=== PATIENT | male | born 1975 | race Caucasian/White ===

== ENCOUNTER 2025-03-18 07:50 | Emergency (ER) | payer OTHER, SELFPAY ==
[2025-03-18 07:52] VITALS: BP 123/101; PULSE 73; RESP 16; TEMP 36.6; O2SAT 98; BMI 27.9
[2025-03-18 08:06] VITALS: BP 124/93; PULSE 76; RESP 16; TEMP 36.8; O2SAT 99
--- NOTE | 2025-03-18 08:19 | EDS_ITS ---
HPI History of Present Illness Chief Complaint: Cellulitis PFSH PFSH Medical History no medical history Home Medications ?Medication ?Instructions ?Recorded ?Last Taken ?Type sulfamethoxazole 800 1 tab PO BID #14 tabs Unknown Rx mg-trimethoprim 160 mg tablet (Bactrim DS) doxycycline hyclate 100 mg capsule 100 mg PO BID 10 da ys #20 caps 03/18/25 Unknown Rx Allergy/AdvReac Type Severity Reaction Status Date / Time No Known Allergies Allergy Verified 03/18/25 07:51 Surgical History no surgical history
--- NOTE | 2025-03-18 08:19 | EX.ED.DYSGE1 ---
HPI History of Present Illness Chief Complaint: Cellulitis [facility] Medical History no medical history Home Medications ?Medication ?Instructions ?Recorded ?Last Taken ?Type sulfamethoxazole 800 1 tab PO BID #14 tabs 03/11/25 Unknown Rx mg-trimethoprim 160 mg tablet (Bactrim DS) doxycycline hyclate 100 mg capsule 100 mg PO BID 10 days #20 caps 03/18/25 Unknown Rx Allergy/AdvReac Type Severity Reaction Status Date / Time No Known Allergies Allergy Verified 03/18/25 07:51 Surgical History no surgical history Social History Smoking Status: Unknown if ever smoked EXAM Physical Exam Const Vital Signs: 03/18/25 07:52 03/18/25 08:06 03/18/25 10:00 Temperature 97.9 F 98.3 F 97.5 F L Temperature Source Oral Oral Oral Pulse Rate 73 76 61 Respiratory Rate 16 16 18 Blood Pressure 123/101 H 124/93 H 125/91 H Blood Pressure Mean 108 103 102 Pulse Ox 98 99 98 Oxygen Delivery Method Room Air Room Air Room Air MDM [facility] Narrative Medical decision making narrative: HISTORY OF PRESENT ILLNESS: Chief complaint: Concern for cellulitis 49-year-old male presents concern for cellulitis. He states he has had 7 days of redness. Notes has been on Bactrim however it does not improve his symptoms. He notes he finished antibiotics today. REVIEW OF SYSTEMS: Pertinent positives: Leg redness Pertinent negatives: Vomiting PHYSICAL EXAM: Nursing triage notes reviewed, Vital signs reviewed Constitutional: please see mdm Lungs: Clear to auscultation, No wheezing or rales. No increased work of breathing, no conversational dyspnea, no accessory muscle use, no nasal flaring. No respiratory distress noted Heart: Regular rate and rhythm, No murmurs, No rubs and No gallops, 2+ distal pulses (radial, femoral, posterior tibial) in all extremities Extremities: No edema, compartments are soft Neuro: Intact sensation L1-S1 dermatomal distributions. Intact 5/5 strength in hip flexion (T12-L3). Knee extension (L2-L4). Ankle dorsiflexion (L4-L5). Ankle plantar flexion (S1). Great toe extension (L5). 2+ patellar and Achilles DTRs. Skin: Erythematous rash noted to the posterior calf, no crepitus or bullae noted, there is approximately 12 x 12 cm area of redness. Pain is on reports exam. Compartments are soft. MEDICAL DECISION MAKING: Chief Complaint: please see HPI External records reviewed: Reviewed prior allergies, problem list, vital signs, current and past medications Factors affecting care: none Social determinants of health: none History obtained from others: none Consults: none [facility] Narrative: The patient was initially hemodynamically stable, afebrile and nontoxic-appearing saturating 99% on room air. I considered the following differential diagnosis: Cellulitis, necrotizing fasciitis Clinical exam was not consistent with necrotizing fasciitis. The patient did not appear to be toxic or septic. I obtained a broad lab and imaging workup to further determine if the patient was suffering from a life-threatening etiology. Initially treat the patient with IV vancomycin ALL IMAGES (IF OBTAINED) HAVE BEEN PERSONALLY REVIEWED AND INTERPRETED BY MYSELF. Lactate is wnl indicating no end-organ hypoperfusion and/or hypoxia. CBC without leukocytosis to suggest severe systemic inflammation BMP without evidence of significant electrolyte abnormalities, no anion gap, no acute kidney injury. Patient was offered admission given failure of outpatient antibiotics. Patient was alert and orient x 3 and had capacity to make his own medical decisions. He chose to be discharged with oral antibiotics and live admission at this time. He promised to return if symptoms change or worsen The patient and/or family, caregivers express understanding. The patient and/or family, caregivers agrees with the plan. Shared decision making: I will have a discussion with the patient and or visitors regarding risk/benefits of further testing or admission. They will be made aware of of the risk/benefits inherent in this decision they will be given the opportunity to voice understanding. Total critical care time today provided was at least 0 minutes. This excludes separately billable procedures. Critical care time (if documented) is secondary to the patient having high probability of clinically significant/life threatening deterioration in the patient's condition which required my urgent intervention. Impression: 1. Left leg cellulitis 2. Failed outpatient Dispo: Discharge home This note was generated with [employer] dictation software. It may contain incorrect words, spelling, and punctuation that were not noted in review of the chart prior to signing. Lab Data Labs: Laboratory Results - last 24 hr 03/18/25 03/18/25 09:05 09:07 WBC 5.0 RBC 4.59 L Hgb 14.0 Hct 40.9 MCV 89.1 MCH 30.5 MCHC 34.2 RDW Std Deviation 42.0 RDW Coeff of Evert 12.7 Plt Count 227 MPV 8.7 Sodium 139 Potassium 4.5 Chloride 105 Carbon Dioxide 22.8 Anion Gap 11 BUN 14 Creatinine 1.15 Estim Creat Clear Calc 82.49 Est GFR (MDRD) Non-Af 77 BUN/Creatinine Ratio 12.0 Glucose 97 Lactic Acid 1.1 Calcium 9.4 Discharge Plan Triage Chief Complaint: Cellulitis ED Provider: Pelon Centeno Dx/Rx/DC Orders Clinical Impression: Cellulitis of left leg Instructions: Cellulitis Dc Prescriptions: New doxycycline hyclate 100 mg capsule 100 mg PO BID 10 Days Qty: 20 0RF No Action sulfamethoxazole-trimethoprim [Bactrim DS] 800-160 mg tablet 1 tab PO BID Qty: 14 0RF Primary Care Provider: Ross Alba Referrals: Ross Alba DO [Primary Care Provider] - Activity Restrictions/Additional Instructions: Thank you for trusting us with your care today! Your clinical exam is consistent with cellulitis. This is due to antibiotics. Please return if develop severe redness that worsens over hours. If develop fever, vomiting, cannot tolerate antibiotics by mouth. Please take Tylenol (2 pills, 650 mg), ibuprofen (2 pills, 400 mg) every 6 hours as needed for pain and fever control. Please return to the emergency department if your symptoms change or worsen. Please follow with your primary care physician for further outpatient evaluation and management. Print Language: Pashto Disposition Disposition: Home, Self Care
[2025-03-18 09:16] LABS: Hematocrit 40.9 % (40-54); Mean Corp Hgb Conc 34.2 g/dL (32-36); Mean Corpuscular Hgb 30.5 pg (27.0-32.0); Mean Corpuscular Volume 89.1 fL (80-94); Mean Platelet Vol. 8.7 fl (6.2-12.0); Platelet Count 227 K/mm3 (150-450); RBC Distribution Width CV 12.7 % (11.6-14.6); Red Blood Count 4.59 M/mm3 (4.6-6.2)
[2025-03-18] MEDS: Vancomycin HCl 1,250 MG in 0.9% Normal Saline (250mL Bag) 250 ML 167 MG IV (09:38)
[2025-03-18 09:49] LABS: Anion Gap 11 (5-15); BUN 14 mg/dL (4-19); Calcium,Total 9.4 mg/dL (7.6-11.0); Carbon Dioxide 22.8 mmol/L (21.0-32.0); Chloride 105 mmol/L (98-108); Creatinine, Serum 1.15 mg/dL (0.70-1.20); EST Glomerular Filtration Rate 77 (>60); Estimated Creatinine Clearance 82.49 ml/min (50-250); Glucose 97 mg/dL (70-99); Potassium 4.5 mmol/L (3.3-5.1); Sodium Level 139 mmol/L (133-145)
[2025-03-18 09:51] LABS: Lactic Acid 1.1 mmol/L (0.0-2.0)
[2025-03-18] MEDS: 0.9% Normal Saline (1000mL) 1,000 ML 999 ML IV (09:55)
[2025-03-18 10:00] VITALS: BP 125/91; PULSE 61; RESP 18; TEMP 36.4; O2SAT 98
[2025-03-18 11:00] VITALS: BP 121/89; PULSE 68; RESP 16; TEMP 36.6; O2SAT 99
[2025-03-18 11:50] VITALS: BP 115/84; PULSE 67; RESP 16; TEMP 36.8; O2SAT 97
--- OUTSIDE RECORDS SUMMARY | 2025-03-18 20:57 | XMS RPT_ITS | CCD ---
Author Organization [facility] Care Team Providers Care Director Of Content Marketing Name Role Phone MIGUEL ANGEL HUBER Unavailable Unavailable BRE HERNANDEZ (SHIRRING TENDER) Unavailable UnavailBETZAIDA Ayala Admitting Unavailable BETZAIDA HERNÁNDEZ Attending Unavailable BETZAIDA HERNÁNDEZ Primary Care Unavailable Dr. Ross Alba DO Primary Care Provider [phone] Dr. Ross Alba DO Referring Provider Travis Parmar Attending Provider [phone] Pelon Centeno DO Emergency Provider [phone] Travis Parmar Attending Unavailable Ross Alba Referring Unavailable Ross Alba Primary Care Unavailable Ross Alba Primary Care Unavailable Pelon Centeno Attending Unavailable Allergies Allergy Classification Reported Allergen(s) Allergy Type Date of Onset Reaction(s) Facility (1 source) Penicillins; Translations: [PENICILLINS] Propensity to adverse reactions to drug (disorder) 7 [facility] Repository (1 source) NO KNOWN ALLERGIES; Translations: [NO KNOWN ALLERGIES] Propensity to adverse reactions to drug (disorder) [facility] Repository Medications Current Medications Medication Drug Class(es) Dates Sig (Normalized) Sig (Original) doxycycline hyclate 100 mg oral capsule (1 source) Tetracycline-class Drug Start: 03-18-2025 take 1 capsule by mouth twice daily Doxycycline Hyclate 100 mg capsule Active 100 mg PO TWICE A DAY 20 10 0 March 18, 2025 12:00am sulfamethoxazole 800 mg / trimethoprim 160 mg oral tablet (2 sources) Dihydrofolate Reductase Inhibitor Antibacterial, Sulfonamide Antimicrobial Start: 03-11-2025 Sulfamethoxazole -Trimethoprim (Bactrim Ds) 800-160 mg tablet Active 1 {tbl} PO TWICE A DAY 14 0 March 11, 2025 12:00am Completed/Discontinued Medications Medication Drug Class(es) Dates Sig (Normalized) Sig (Original) clindamycin 150 mg oral capsule (2 sources) Lincosamide Antibacterial Start: 04-21-2017 End: 10-17-2023 take 2 capsules by mouth four times daily Clindamycin Hcl 150 MG capsule Discontinued 300 mg PO 4 TIMES DAILY 80 0 April 21, 2017 12:00am October 17, 2023 10:31am Problems Problem Classification Problem Date Documented Da te Episodic/Chronic Immunizations and screening for infectious disease (2 sources) Contact with and (suspected) exposure to other viral communicable diseases; Translations: [Contact with and (suspected) exposure to other viral communicable diseases] Onset: 02-03-2020 Episodic Other non-traumatic joint disorders (2 sources) Ankle pain; Translations: [Pain in right ankle and joints of right foot] 10-17-2023 Episodic Skin and subcutaneous tissue infections (2 sources) Cellulitis of left lower limb; Translations: [Cellulitis of left lower limb] 03-11-2025 Episodic Sprains and strains (2 sources) Sprain of right ankle; Translations: [Sprain of unspecified ligament of right ankle, initial encounter] 10-17-2023 Episodic Unclassified (1 source) Invalid ICD10 Description; Translations: [Invalid ICD10 Description] Onset: 02-03-2020 Results Test Name Value Interpretation Reference Range Facility Anion gap in Serum or Plasma Ordered By: Pelon Centeno on 03-18-2025 Anion gap [Moles/Vol] 11 mmol/L - [facility] BUN/creatinine ratioOrdered By: Pelon Centeno on 03-18-2025 Urea nitrogen/Creatinine [Mass ratio] 12.0 mg/mg - [facility] Basic Metabolic Profile (BMP )on 03-18-2025 BUN/CRE 12.0 RATIO Normal 07-08 [facility] Comment on above: Performed By: #### L 503.4220, L100.0500, L500.2500 #### [facility] [address] [place], [address] Calcium [Mass/Vol] 9.4 mg/dL Normal 7.6-11.0 [facility] Comment on above: Performed By: #### L 503.6005, L100.0500, L500.2500 #### [facility] [address] [place], [address] Chloride [Moles/Vol] 105 mmol/L Normal 98-108 [facility] Comment on above: Performed By: #### L 503.6005, L100.0500, L500.2500 #### [facility] [address] [place], [address] CO2 [Moles/Vol] 22.8 mmol/L Normal 21.0-32.0 [facility] Comment on above: Performed By: #### L 503.6005, L100.0500, L500.2500 #### [facility] [address] [place], [address] Creatinine [Mass/Vol] 1.15 mg/dL Normal 0.70-1.20 [facility] Comment on above: Performed By: #### L 503.6005, L100.0500, L500.2500 #### [facility] [address] [place], [address] ECRCL 82.49 ml/min Normal 50-250 [facility] Comment on above: Performed By: #### L 503.6005, L100.0500, L500.2500 #### [facility] [address] [place], [address] GAP 11 Normal 5-15 [facility] Comment on above: Performed By: #### L 503.6005, L100.0500, L500.2500 #### [facility] [address] [place], [address] GFR/1.73 sq M.predicted among non-blacks MDRD (S/P/Bld) [Vol rate/Area] 77 mL/min/{1.73_m2} Normal >60 [facility] Comment on above: Result Comment: mL/m in/1.73m2 CKD-EPI Creatinine Equation (2020) Performed By: #### L 503.6005, L100.0500, L500.2500 #### [facility] [address] [place], [address] Glucose [Mass/Vol] 97 mg/dL Normal 70-99 [facility] Comment on above: Performed By: #### L 503.6005, L100.0500, L500.2500 #### [facility] [address] [place], [address] Potassium [Moles/Vol] 4.5 mmol/L Normal 3.3-5.1 [facility] Comment on above: Performed By: #### L 503.6005, L100.0500, L500.2500 #### [facility] [address] [place], [address] Sodium [Moles/Vol] 139 mmol/L Normal 133-145 [facility] Comment on above: Performed By: #### L 503.6005, L100.0500, L500.2500 #### [facility] [address] [place], [address] Urea nitrogen [Mass/Vol] 14 mg/dL Normal 4-19 [facility] Comment on above: Performed By: #### L 503.6005, L100.0500, L500.2500 #### [facility] [address] [place], [address] CBC-Complete Blood Cnt No Di ffon 03-18-2025 Erythrocyte distribution width (RBC) [Ratio] 12.7 % Normal 11.6-14.6 [facility] Comment on above: Performed By: #### L 503.6005, L100.0500, L500.2500 #### [facility] [address] [place], [address] Hematocrit (Bld) [Volume fraction] 40.9 % Normal 40-54 [facility] Comment on above: Performed By: #### L 503.6005, L100.0500, L500.2500 #### [facility] [address] [place], [address] Hemoglobin (Bld) [Mass/Vol] 14.0 g/dL Normal 13.0-16.5 [facility] Comment on above: Performed By: #### L 503.6005, L100.0500, L500.2500 #### [facility] [address] [place], [address] MCH (RBC) [Entitic mass] 30.5 pg Normal 27.0-32.0 [facility] Comment on above: Performed By: #### L 503.6005, L100.0500, L500.2500 #### [facility] [address] [place], [address] MCHC (RBC) [Mass/Vol] 34.2 g/dL Normal 32-36 [facility] Comment on above: Performed By: #### L 503.6005, L100.0500, L500.2500 #### [facility] [address] [place], [address] MCV (RBC) [Entitic vol] 89.1 fL Normal 80-94 [facility] Comment on above: Performed By: #### L 503.6005, L100.0500, L500.2500 #### [facility] [address] [place], [address] Platelet mean volume (Bld) [Entitic vol] 8.7 fL Normal 6.2-12.0 [facility] Comment on above: Performed By: #### L 503.6005, L100.0500, L500.2500 #### [facility] [address] [place], [address] Platelets (Bld) [#/Vol] 227 10*3/uL Normal 150-450 [facility] Comment on above: Performed By: #### L 503.6005, L100.0500, L500.2500 #### [facility] [address] [place], [address] RBC (Bld) [#/Vol] 4.59 10*6/uL Low 4.6-6.2 [facility] Comment on above: Performed By: #### L 503.6005, L100.0500, L500.2500 #### [facility] [address] [place], [address] RDW SD 42.0 fl Normal 35.1-43.9 [facility] Comment on above: Performed By: #### L 503.6005, L100.0500, L500.2500 #### [facility] [address] [place], [address] WBC (Bld) [#/Vol] 5.0 10*3/uL Normal 4.4-11.0 [facility] Comment on above: Performed By: #### L 503.6005, L100.0500, L500.2500 #### [facility] [address] [place], [address] Carbon dioxide, total [Moles /volume] in Central venous bloodOrdered By: Pelon Centeno on 03-18-2025 CO2 [Moles/Vol] 22.8 mmol/L 21.0-32.0 [facility] Chloride assayOrdered By: Thi Centeno on 03-18-2025 Chloride [Moles/Vol] 105 mmol/L 98-108 [facility] Emergency Department Summary on 03-18-2025 Emergency Department Summary [facility] Medical Records Department [address] [place] [address] Emergency Department Summary 03/18/25 MR#: [id number] Acct: [id number] Name: PEYTON ZAMORANO Rep #: [id number] : 1975 49 From: Pelon Centeno DO PCP: Dr. Ross Alba MD Status:REG ER Location: ED HPI History of Present Illness Chief Complaint: Cellulitis PFSH PFSH Medical History no medical history Home Medications ???Medication ???Instructions ???Recorded ???Last Taken ???Type sulfamethoxazole 800 1 tab PO BID #14 tabs 03/11/25 Unk nown Rx mg-trimethoprim 160 mg tablet (Bactrim DS) doxycycline hyclate 100 mg capsule 100 mg PO BID 10 days #20 caps 0 03/18/25 Unknown Rx Allergy/AdvReac Type Severity Reaction Status Date / Time No Known Allergies Allergy Verified 03/18/25 07:51 Surgical History no surgical history Social History Smoking Status: Unknown if ever smoked EXAM Physical Exam Const Vital Signs: 03/18/25 07:52 03/18/25 08:06 03/18/25 10:00 Temperature 97.9 F 98.3 F 97.5 F L Temperature Source Oral Oral Oral Pulse Rate 73 76 61 Respiratory Rate 16 16 18 Blood Pressure 123/101 H 124/93 H 125/91 H Blood Pressure Mean 108 103 102 Pulse Ox 98 99 98 Oxygen Delivery Method Room Air Room Air Room Air MDM MDM MDM Narrative Medical decision making narrative: HISTORY OF PRESENT ILLNESS: Chief complaint: Concern for cellulitis 49-year-old male presents concern for cellulitis. He states he has had 7 days of redness. Notes has been on Bactrim however it does not improve his symptoms. He notes he finished antibiotics today. REVIEW OF SYSTEMS: Pertinent positives: Leg redness Pertinent negatives: Vomiting PHYSICAL EXAM: Nursing triage notes reviewed, Vital signs reviewed Constitutional: please see mdm Lungs: Clear to auscultation, No wheezing or rales. No increased work of breathing, no conversational dyspnea, no accessory muscle use, no nasal flaring. No respiratory distress noted Heart: Regular rate and rhythm, No murmurs, No rubs and No gallops, 2+ distal pulses (radial, femoral, posterior tibial) in all extremities Extremities: No edema, compartments are soft Neuro: Intact sensation L1-S1 dermatomal distributions. Intact 5/5 strength in hip flexion (T12- L3). Knee extension (L2-L4). Ankle dorsiflexion (L4-L5). Ankle plantar flexion (S1). Great toe e xtension (L5). 2+ patellar and Achilles DTRs. Skin: Erythematous rash noted to the posterior calf, no crepitus or bullae noted, there is approximately 12 x 12 cm area of redness. Pain is on reports exam. Compartments are soft. MEDICAL DECISION MAKING: Chief Complaint: please see HPI External records reviewed: Reviewed prior allergies, problem list, vital signs, current and past medications Factors affecting care: none Social determinants of health: none History obtained from others: none Consults: none [facility] Narrative: The patient was initially hemodynamically stable, afebrile and nontoxic-appearing saturating 99% on room air. I considered the following differential diagnosis: Cellulitis, necrotizing fasciitis Clinical exam was not consistent with necrotizing fasciitis. The patient did not appear to be toxic or septic. I obtained a broad lab and imaging workup to further determine if the patient was suffering from a life-threatening etiology. Initially treat the patient with IV vancomycin ALL IMAGES (IF OBTAINED) HAVE BEEN PERSONALLY REVIEWED AND INTERPRETED BY MYSELF. Lactate is wnl indicating no end-organ hypoperfusion and/or hypoxia. CBC without leukocytosis to suggest severe systemic inflammation BMP without evidence of significant electrolyte abnormalities, no anion gap, no acute kidney injury. Patient was offered admission given failure of outpatient antibiotics. Patient was alert and orient x 3 and had capacity to make his own medical decisions. He chose to be discharged with oral antibiotics and live admission at this time. He promised to return if symptoms change or worsen The patient and/or family, caregivers express understanding. The patient and/or family, caregivers agrees with the plan. Shared decision making: I will have a discussion with the patient and or visitors regarding risk/benefits of further testing or admission. They will be made aware of of the risk/benefits inherent in this decision they will be given the opportunity to voice understanding. Total critical care time today provided was at least 0 minutes. This excludes separately billable procedures. Critical care time (if documented) is secondary to the patient having high probability of clinically significant/life threatening deterioration in the patient's condition which required my urgent intervention. Raffy (more content not included)... Normal [facility] Erythrocyte distribution wid th ratioOrdered By: Pelon Centeno on 03-18-2025 Erythrocyte distribution width (RBC) [Ratio] 12.7 % 11.6-14.6 [facility] Erythrocyte distribution wid th standard deviationOrdered By: Pelon Centeno on 03-18-2025 Erythrocyte distribution width (RBC) [Ratio] 42.0 fl 35.1-43.9 [facility] Glomerular filtration rate ( GFR) estimation/1.73 sq m using serum, plasma, or whole bOrdered By: Pelon Centeno on 03-18-2025 GFR/1.73 sq M.predicted among non-blacks MDRD (S/P/Bld) [Vol rate/Area] 77 mL/min/{1.73_m2} >60 [facility] Comment on above: mL/min/1.73m2 CKD-EP I Creatinine Equation (2020) Hematocrit Auto (Bld) [Volum e fraction]Ordered By: Pelon Centeno on 03-18-2025 Hematocrit (Bld) [Volume fraction] 40.9 % 40-54 [facility] Hemoglobin measurementOrdere d By: Pelon Centeno on 03-18-2025 Hemoglobin (Bld) [Mass/Vol] 14.0 g/dL 13.0-16.5 [facility] Lactic Acidon 03-18-2025 Lactate [Moles/Vol] 1.1 mmol/L Normal 0.0-2.0 [facility] Comment on above: Order Comment: Y Performed By: #### L 503.6005, L100.0500, L500.2500 #### [facility] [place], [address] Lactic acid measurementOrder ed By: Pelon Centeno on 03-18-2025 Lactate [Moles/Vol] 1.1 mmol/L 0.0-2.0 [facility] MCV (mean corpuscular volume ) determinationOrdered By: Pelon Centeno on 03-18-2025 MCV (RBC) [Entitic vol] 89.1 fL 80-94 [facility] Mean corpuscular hemoglobin (MCH) determinationOrdered By: Pelon Centeno on 03-18-2025 MCH (RBC) [Entitic mass] 30.5 pg 27.0-32.0 [facility] Mean corpuscular hemoglobin concentration (MCHC) determinationOrdered By: Pelon Centeno on 03-18-2025 MCHC (RBC) [Mass/Vol] 34.2 g/dL 32-36 [facility] Mean platelet volume determi nationOrdered By: Pelon Centeno on 03-18-2025 Platelet mean volume (Bld) [Entitic vol] 8.7 fL 6.2-12.0 [facility] Platelet countOrdered By: Thi Centeno on 03-18-2025 Platelets (Bld) [#/Vol] 227 10*3/uL 150-450 [facility] Potassium measurement (mass/ volume)Ordered By: Pelon Centeno on 03-18-2025 Potassium (Unsp spec) [Mass/Vol] 4.5 mmol/L 3.3-5.1 [facility] RBC Auto (Bld) [#/Vol]Ordere d By: Pelon Centeno on 03-18-2025 RBC (Bld) [#/Vol] 4.59 10*6/uL Low 4.6-6.2 [facility] Serum creatinine measurement (mass/volume)Ordered By: Pelon Centeno on 03-18-2025 Creatinine [Mass/Vol] 1.15 mg/dL 0.70-1.20 [facility] Serum glucose measurement (m ass/volume)Ordered By: Pelon Centeno on 03-18-2025 Glucose [Mass/Vol] 97 mg/dL 70-99 [facility] Serum or plasma calcium tacho urement (mass/volume)Ordered By: Pelon Centeno on 03-18-2025 Calcium [Mass/Vol] 9.4 mg/dL 7.6-11.0 [facility] Serum or plasma urea nitroge n measurement (mass/volume)Ordered By: Pelon Centeno on 03-18-2025 Urea nitrogen [Mass/Vol] 14 mg/dL 4-19 [facility] Sodium levelOrdered By: Jacinda Centeno on 03-18-2025 Sodium [Moles/Vol] 139 mmol/L 133-145 [facility] White blood cell (WBC) count Ordered By: Pelon Centeno on 03-18-2025 WBC (Bld) [#/Vol] 5.0 10*3/uL 4.4-11.0 [facility] Office Visit Reporton 2024 Office Visit Report [facility] [address] [place] [address] OFFICE VISIT Date of Service: 03/11/25 MR#: [id number] Acct: [id number] Patient: PEYTON ZAMORANO Rep #: [id number] : 1975 Provider: DANIEL Krause Age/Sex: 49/M Location: [facility] Status: Signed Intake Vital Signs 10/17/23 09:28 03/11/25 10:37 Height 1.75 m 1.75 m Weight: 86.636 kg BMI 28.2 BP 120/83 H Blood Pressure Location Lt brachial Position Sitting Pulse 90 Pulse Source Monitor Temp 98.6 F Temp Source Temporal Pulse Oximetry (%) 96 Intake Visit Reasons: L LEG/CONCERN FOR BOIL/POSS BITE Chief Complaint: left calf cellulitis Allergies No Known Allergies Allergy (Verified 03/11/25 10:38) Medications ???Medication ???Instructions ???Recorded ???Confirmed ???Type sulfamethoxazole 800 1 tab PO BID #14 tabs 03/11/25 Rx mg-trimethoprim 160 mg tablet (Bactrim DS) PFSH Social History Smoking Status: Unknown if ever smoked HPI HPI Chief Complaint: left calf cellulitis Details: PEYTON ZAMORANO, is a 49 M who presents to the office today for left calf cellulitis. This started about 5 days ago. He does not recall a specific inciting injury, wound or bite, tho he thinks he may have been bitten by a spider. He has a somewhat annular dark erythematous area on the back of his left calf. It is swollen and painful. It has a small head in the center. He has no tracking up the leg. He has no fever/chills. He has been putting essential oils and charcoal on it with no relief. ROS Const Constitutional: No chills, fatigue or fever(s) Skin Skin: Positive for redness, skin pain and skin swelling; No itchy eyes or wounds Endo Endocrine: No fatigue Aller/Imm Allergy/Immunologic: No itchy eyes Exam Const General: cooperative, healthy appearing, comfortable, no acute distress, well developed and well groomed Nutritional Appearance: average body habitus and well nourished Orientation: alert, awake and oriented x3 HENMT Head: normocephalic and atraumatic Skin Other: left calf annular area of erythema, swelling, tenderness, increased warmth. small raised head in the center. no drainage. mild induration. no abcess palpable. Coding Level of Care Code Off vis,new,level 3 Diagnoses Cellulitis of left leg L03.116 Assessment and Plan Assessment and Plan (1) Cellulitis of left leg: Status: Acute Plan: unclear inciting etiology, possibly a bug or spider bite. allergic to pcn. start bactrim x 7 days. if no improvement 1 week follow up for re-eval if worsening go to the ER Medications: New sulfamethoxazole-trimethoprim 800-160 mg (Bactrim DS) 1 TAB PO BID 14 tabs 0RF 03/11/25 1056 Date Travis Najera Signature: Date (if applicable) CC: Normal [facility] CORONAVIRUS [CCL]on 02-05-20 20 REF LAB REPORT Positive Normal [facility] Comment on above: Result Comment: { Co mment _[id number] Performed By: #### 2 [id number] #### [facility],[address] [place] [address] COVID 19 Result SHIRRING TENDER Positive Abnormal [facility] Comment on above: Result Comment: Posi tive for COVID19 (SARS CoV2) by PCR.(*) This test was developed and its performance characteristics determined by [facility] [place]. This test has been authorized by FDA under an Emergency Use Authorization (EUA). This test has been validated in accordance with the FDA's Guidance Document Policy for Diagnostics Testing in Laboratories Certified to Perform High Complexity Testing under CLIA prior to Emergency use Authorization for Coronavirus Disease 2019 during the Public Health Emergency issued on November 17, 2019. [facility] [address] [id number] Daniel Ceja III, M.D. [id number] Performed By: #### 2 [id number] #### [facility],[address] [place] [id number] COVID 19 Source SHIRRING TENDER NO SWAB Normal [facility] Comment on above: Performed By: #### 2 [id number] #### [facility],[address] [place] [id number] Coronavirus 2019on 0 COVID 19 Source SHIRRING TENDER Normal [facility] Comment on above: Result Comment: NO S WAB Called to and read back by: Stephany Guest Advisor [facility] 02/05/2020 Charlotte Ott Performed By: #### C OVID #### [facility] Routine Lab [address] [id number] COVID 19 Result SHIRRING TENDER Abnormal Negative for COVID19 (SARS CoV2) by PCR. [facility] Comment on above: Result Comment: Posi tive for This test was developed and its performance characteristics determined by [facility]'s [facility] [place]. This test has been authorized by FDA under an Emergency Use Authorization (EUA). This test has been validated in accordance with the FDA's Guidance Document Policy for Diagnostics Testing in Laboratories Certified to Perform High Complexity Testing under CLIA prior to Emergency use Authorization for Coronavirus Disease 2019 during the Public Health Emergency issued on November 17, 2019. COVID19 (SARS This test was developed and its performance characteristics determined by [facility] [place]. This test has been authorized by FDA under an Emergency Use Authorization (EUA). This test has been validated in accordance with the FDA's Guidance Document Policy for Diagnostics Testing in Laboratories Certified to Perform High Complexity Testing under CLIA prior to Emergency use Authorization for Coronavirus Disease 2019 during the Public Health Emergency issued on November 17, 2019. CoV2) by This test was developed and its performance characteristics determined by [facility]'s [facility] [place]. This test has been authorized by FDA under an Emergency Use Authorization (EUA). This test has been validated in accordance with the FDA's Guidance Document Policy for Diagnostics Testing in Laboratories Certified to Perform High Complexity Testing under CLIA prior to Emergency use Authorization for Coronavirus Disease 2019 during the Public Health Emergency issued on November 17, 2019. PCR.(*) This test was developed and its performance characteristics determined by [facility]'s [facility] Pathology and Laboratory Medicine [place]. This test has been authorized by FDA under an Emergency Use Authorization (EUA). This test has been validated in accordance with the FDA's Guidance Document Policy for Diagnostics Testing in Laboratories Certified to Perform High Complexity Testing under CLIA prior to Emergency use Authorization for Coronavirus Disease 2019 during the Public Health Emergency issued on November 17, 2019. Performed By: #### C OVID #### [facility] Laboratories Routine Lab [address] [address] CNOVon 04-21-2017 CNOV Office Visit (UCWSTR) -PEYTON ZAMORANO ([id number]) 1975 MDate Time Provider Department04/21/17 10:45 AM YOGESH LEWIS) WSTR During your visit today, we recorded the following information about you: Temperature Pulse Blood pressure Weight 97.3 degrees 64/minute 112/78 80.6 kgTim CLOVIS Lewis 04/21/2017 11:17 AM SignedHPI2 weeks ago, pt was bitten by a spider. A week later he was seen here andprescribed keflex and prednisone. He has finished the prednisone and is stillon the keflex. The rash is still spreading. Pt feels flushed with low backpain. Abdominal rash is tender to touch.Review of SystemsConstitutional: Negative.HENT: Negative.Eyes: Negative.Respiratory: Negative.Cardiovascular: Negative.Gastrointestinal: Negative.Genitourinary: Negative.Musculoskeletal: Negative.Skin: Positive for itching and rash.Neurological: Negative.Endo/Heme/Allergies: Negative.Physical ExamConstitutional: He is oriented to person, place, and time and well-developed,well-nourished , and in no distress.HENT:Head: Normocephalic and atraumatic.Eyes: Conjunctivae are normal. Pupils are equal, round, and reactive to light.Neck: Normal range of motion. Neck supple.Cardiovascular: Regular rhythm and normal heart sounds.Pulmonary/Chest: Effort normal and breath sounds normal.Abdominal: Soft.Musculoskeletal: Normal range of motion.Neurological: He is alert and oriented to person, place, and time. Gait normal.GCS score is 15.Skin:Erythema covering entire abdominal wall up to neck with radiation around to Lcva region.Psychiatric: Mood, memory, affect and judgment normal.Nursing note and vitals reviewed.BP 112/78 Pulse 64 Temp 36.3 ?C (97.3 ?F) (Tympanic) Wt 80.6 kg (177 lb12.8 oz).Patient presents with:rash on stomach: x almost 2 weeks-rash is spreading and not getting anybetter-PCP on vacationBack Pain: states that he has been urinating more frequent and has bilaterallower back pain in the kidney area- and he thinks he may have a kidney infectionNo past medical history on file.No past surgical history on file.ALLERGIES PenicillinsMEDICATIONScephALE Laee (KEFLEX) 500 mg capsule Take 1 capsule by mouth twice daily for 10days.No family history on file.Social HistorySubstance Use Topics- Smoking status: Never Smoker- Smokeless tobacco: Not on file- Alcohol use Not on fileASSESSMENT/PLAN:1. Cellulitis of chest wall - ICD9: 682.2, ICD10: L03.313 (primary diagnosis)- As pt presents with markedly worsening symptoms he will be sent to the ERfor evaluation. Report given to Dr. Koch at [place] [facility]. Pt is agreeable andwill self transport.2. Low back pain, unspecified back pain laterality, unspecified chronicity,with sciatica presence unspecified - ICD9: 724.2, ICD10: M54.5Mechanical low back painPlan- Pt sent to ER for evaluation of cellulitis. They can evaluate further.- UA DIP B/O- negative- URINE CULTUREYogesh Lewis CNPPrescription instructions reviewed with patient as applicable. Patient advisedif symptoms do not improve or if symptoms worsen sooner, to contact the officefor further evaluation by either myself or their primary care physician.Potential red flag symptoms discussed with the patient. Reviewed appropriateaction plan to take if red flag symptoms occur. Patient agreeable to treatmentplan.Mark Medina CNP 04/21/2017 11:09 AM SignedThe [facility], [place] [address]Tkbfzpzuh DepartmentPhone: Yyokpvobh: AssessmentPlease go directly to the ER for further evaluation of your symptoms.CELLULITIS:Your exam shows you have an infection of the skin called cellulitis. Thisinfection usually develops after an injury, cut, bite, or sting, but may occurwithout any known cause. Usually there is a localized area of redness,swelling, and pain which gets constantly bigger unless treatment is started. Ifcellulitis is severe or does not respond to initial treatment, hospital carewith antibiotic injections may be needed.Treatment of cellulitis includes antibiotics along with resting and elevatingthe affected area until the infection improves. You should apply moist, warmcompresses to the area for 30 minutes 4 times daily also. Please see yourdoctor if the pain and swelling from your infection are not better after twodays of treatment. Call your doctor or go to the emergency department rightaway if you develop fever, chills, or other serious problems. You may require atetanus booster if you are not current with your inmunizations.Referring Provider: SELF [200]Allergies As of Date: 04/21/2017 Noted Allergy ReactionPENICILLINS 04/14/2017 16 - Unknown Comments: Long time ago-thinks it gave him a ZIMMERMAN and it did not helpDate Reviewed: 04/21/2017Reviewed by: Jodie Pimentel LPN - Fully AssessedReason for Visit: rash on stomach [Other] Cmt: x almost 2 weeks-rash is spreading and not getting any better-PCP on vacation Back Pain [12] Cmt: states that he has been urinating more frequent and has bilateral lower back pain in the kidney area- and he thinks he may have a kidney infectionReason For Visit History RecordedPrimary Visit Diagnosis:Cellulitis of chest wall [L03.313] Other Visit Diagnosis:Low back pain, unspecified back pain laterality, unspecified chronicity, with sciatica presence unspecified [M54.5]Order(s):UA DIP B/O [4253115] Order #: [id number] URINE CULTURE [SQURCUL] Order #: [id number] as of 04/21/2017 Sig: CEPHALEXIN 500 MG CAPSULE Take 1 capsule by mouth twice*Problem List As Of Date: 04/21/2017(None) Other instructions from your clinician: [facility] [address] [place] [address] Emergency Department Diagnosis: Assessment Please go directly to the ER for further evaluation of your symptoms. CELLULITIS: Your exam shows you have an infection of the skin called cellulitis. This infection usually develops after an injury, cut, bite, or sting, but may occur without any known cause. Usually there is a localized area of redness, swelling, and pain which gets constantly bigger unless treatment is started. If cellulitis is severe or does not respond to initial treatment, hospital care with antibiotic injections may be needed. Treatment of cellulitis includes antibiotics along with resting and elevating the affected area until the infection improves. You should apply moist, warm compresses to the area for 30 minutes 4 times daily also. Please see your doctor if the pain and swelling from your infection are not better after two days of treatment. Call your doctor or go to the emergency department right away if you develop fever, chills, or other serious problems. You may require a tetanus booster if you are not current with your inmunizations. Status:Closed by YOGSEH LEWIS CNP on 04/21/17 Normal [facility] PROGRESSon 04-21-2017 PROGRESS HNO ID: [id number] thor: Yogesh Ho) Rezaervice: (none)Author Type: Nurse PractitionerType: Progress NotesFiled: 04/21/2017 11:17 AMNote Text:HPI2 weeks ago, pt was bitten by a spider. A week later he was seen here andprescribed keflex and prednisone. He has finished the prednisone and isstill on the keflex. The rash is still spreading. Pt feels flushed withlow back pain. Abdominal rash is tender to touch.Review of SystemsConstitutional: Negative.HENT: Negative.Eyes: Negative.Respiratory: Negative.Cardiovascular: Negative.Gastrointestinal: Negative.Genitourinary: Negative.Musculoskeletal: Negative.Skin: Positive for itching and rash.Neurological: Negative.Endo/Heme/Allergies: Negative.Physical ExamConstitutional: He is oriented to person, place, and time andwell-developed, well-nourished, and in no distress.HENT:Head: Normocephalic and atraumatic.Eyes: Conjunctivae are normal. Pupils are equal, round, and reactive tolight.Neck: Normal range of motion. Neck supple.Cardiovascular: Regular rhythm and normal heart sounds.Pulmonary/Chest: Effort normal and breath sounds normal.Abdominal: Soft.Musculoskeletal: Normal range of motion.Neurological: He is alert and oriented to person, place, and time. Gaitnormal. GCS score is 15.Skin:Erythema covering entire abdominal wall up to neck with radiation aroundto L cva region.Psychiatric: Mood, memory, affect and judgment normal.Nursing note and vitals reviewed.BP 112/78 Pulse 64 Temp 36.3 ?C (97.3 ?F) (Tympanic) Wt 80.6 kg (177lb 12.8 oz).Patient presents with:rash on stomach: x almost 2 weeks-rash is spreading and not getting anybetter-PCP on vacationBack Pain: states that he has been urinating more frequent and hasbilateral lower back pain in the kidney area- and he thinks he may have akidney infectionNo past medical history on file.No past surgical history on file.ALLERGIES PenicillinsMEDICATIONScephALE Alee (KEFLEX) 500 mg capsule Take 1 capsule by mouth twice daily for10 days.No family history on file.Social HistorySubstance Use Topics- Smoking status: Never Smoker- Smokeless tobacco: Not on file- Alcohol use Not on fileASSESSMENT/PLAN:1. Cellulitis of chest wall - ICD9: 682.2, ICD10: L03.313 (primarydiagnosis)- As pt presents with markedly worsening symptoms he will be sent to the for evaluation. Report given to Dr. Koch at [place] [facility]. Pt isagreeable and will self transport.2. Low back pain, unspecified back pain laterality, unspecifiedchronicity, with sciatica presence unspecified - ICD9: 724.2, ICD10: M54.5Mechanical low back painPlan- Pt sent to ER for evaluation of cellulitis. They can evaluatefurther.- UA DIP B/O- negative- URINE CULTUREYogesh Lewis CNPPrescription instructions reviewed with patient as applicable. Patientadvised if symptoms do not improve or if symptoms worsen sooner, tocontact the office for further evaluation by either myself or [facility]. Potential red flag symptoms discussed with thepatient. Reviewed appropriate action plan to take if red flag symptomsoccur. Patient agreeable to treatment plan.Yogesh Lewis CNP [facility] Urine Cultureon 04-21-2017 Urine culture, bacteria Sp. Request/Comment: - Specimen received in preservative Culture Result - No growth (<1,000 CFU/ml) [facility] Comment on above: Performed By: #### U RCUL ####[facility] [address], [place] [phone] CNOVon 04-14-2017 CNOV Office Visit (UCWSTR) -PEYTON ZAMORANO ([id number]) 1975 MDate Time Provider Department04/14/17 10:15 AM ROCIO WHITE) UCWSTR During your visit today, we recorded the following information about you: Temperature Pulse Respiration Blood pressure 97.1 degrees 64/minute 16/minute 130/70 Weight 80.3 kgRocio White CNP 04/14/2017 11:13 AM SignedThe history is provided by the patient and the spouse. No language interpreterwas used.PENELOPE Zamorano is a 41 year old male who presents today for CC of insectbite. Two weeks ago he removed a tick, he does not know how long it was onbefore removed. The recent bite started on Tuesday. It is blistered red andwarm to touch, painful.Symptoms are worsened by touch. He has tried essentialoils to area, he states with relief, also using advil Risk factors insectbite. PMH not significantBP 130/70 Pulse 64 Temp 36.2 ?C (97.1 ?F) (Tympanic) Resp 16 Wt 80.3 kg(177 lb)ALLERGIESAllergen Reactions- Penicillins Unknown Long time ago-thinks it gave him a ZIMMERMAN and it did not helpThere is no problem list on file for this patient.Review of SystemsConstitutional: Negative for chills, fever and malaise/fatigue.Genitourinary : Negative for dysuria.Musculoskeletal: Negative for joint pain and myalgias.Skin: Positive for itching and rash (see HPI).Neurological: Negative for headaches.Physical ExamConstitutional: He is oriented to person, place, and time and well-developed,well-nourished , and in no distress. No distress.HENT:Head: Normocephalic and atraumatic.Eyes: Conjunctivae and EOM are normal. Pupils are equal, round, and reactive tolight.Neck: Normal range of motion. Neck supple.Pulmonary/Chest: Effort normal.Neurological: He is alert and oriented to person, place, and time.Skin: Skin is warm and dry.Psychiatric: Affect normal.Nursing note and vitals reviewed.MDM: Appears to be inflammatory reaction due to insect/spider bite, does notappear like tick bite rash. Will treat for inflammation and cover infectionASSESSMENT/PLAN:1. Insect bite of abdominal wall with local reaction, initial encounter - ICD9:911.4, E906.4, ICD10: S30.861A, W57.XXXAHandwashing before and after touching areaHydrocortisone ointment to affected sitesKeep area clean and drySite care-soap/water wash followed by antibacterial ointment and dressing 2-3 xa dayWatch for signs of infection which are redness, swelling and pus like drainageCool compress to sting site as needed- METHYLPREDNISOLONE 4 MG TABLETS IN A DOSE PACK- CEPHALEXIN 500 MG CAPSULEDiagnosis and treatment plan were discussed and questions were answered to thepatient's satisfaction. Pt acknowledged understanding of concepts and follow upplan.Specific signs and symptoms that would indicate the need for higher level ofcare were discussed in detail warranting prompt ER evaluation.Ghada Sharif CNP 04/14/2017 10:51 AM SignedASSESSMENT/PLAN:1. Insect bite of abdominal wall with local reaction, initial encounter - ICD9:911.4, E906.4, ICD10: S30.861A, W57.XXXAHandwashing before and after touching areaHydrocortisone ointment to affected sitesKeep area clean and drySite care-soap/water wash followed by antibacterial ointment and dressing 2-3 xa dayWatch for signs of infection which are redness, swelling and pus like drainageCool compress to sting site as needed- METHYLPREDNISOLONE 4 MG TABLETS IN A DOSE PACK- CEPHALEXIN 500 MG CAPSULEReferring Provider: SELF [200]Allergies As of Date: 04/14/2017 Noted Allergy ReactionPENICILLINS 04/14/2017 16 - Unknown Comments: Long time ago-thinks it gave him a ZIMMERMAN and it did not helpDate Reviewed: 04/14/2017Reviewed by: Rocio White - Fully AssessedReason for Visit: bite on left side [Other] Cmt: had a tick on him several weeks ago about the same area-on Tuesday of last week noticed another bite in the same area-not sure if related-that is getting very sore-took Advil this am because he thinks he was running a feverReason For Visit History RecordedPrimary Visit Diagnosis:Insect bite of abdominal wall with local reaction, initial encounter [S30.861A, W57.XXXA]Order(s):methylPREDN ISolone (MEDROL, SHIN,) 4 mg Dose-PackFollow dosing instructions, take with food.Disp: 1 PackageRfl: 0 cephALEXin (KEFLEX) 500 mg capsuleTake 1 capsule by mouth twice daily for 10 days.Disp: 20 capsuleRfl: 0Prescriptions as of 04/14/2017 Sig: METHYLPREDNISOLONE 4 MG TABLE* Follow dosing instructions, t* CEPHALEXIN 500 MG CAPSULE Take 1 capsule by mouth twice*Problem List As Of Date: 04/14/2017(None) Other instructions from your clinician: ASSESSMENT/PLAN: 1. Insect bite of abdominal wall with local reaction, initial encounter - ICD9: 911.4, E906.4, ICD10: S30.861A, W57.XXXA Handwashing before and after touching area Hydrocortisone ointment to affected sites Keep area clean and dry Site care-soap/water wash followed by antibacterial ointment and dressing 2-3 x a day Watch for signs of infection which are redness, swelling and pus like drainage Cool compress to sting site as needed - METHYLPREDNISOLONE 4 MG TABLETS IN A DOSE PACK - CEPHALEXIN 500 MG CAPSULEPrescriptions ordered this encounter Disp Refills Start End METHYLPREDNISOLONE 4 MG TABLETS IN A* 1 Pa* 0 04/14/2017 04/20/2017 Sig: Follow dosing instructions, take with food. CEPHALEXIN 500 MG CAPSULE 20 c* 0 04/14/2017 04/24/2017 Route: ORAL Sig: Take 1 capsule by mouth twice daily for 10 days.Medications Discontinued During This Encounter azithromycin (ZITHROMAX Z-SHIN) 250 m* 1 Pa* 0 05/11/2015 04/14/2017 Sig: Take 2 tablets by mouth day one, then 1 tablet daily until gone. Disc: Course of therapy completedEncounter Number: [id number] Status:Closed by ROCIO WHITE CNP on 04/14/17 [facility] PROGRESSon 04-14-2017 PROGRESS HNO ID: [id number] thor: Rocio ([place]) ShanekService: (none)Author Type: Nurse PractitionerType: Progress NotesFiled: 04/14/2017 11:13 AMNote Text:The history is provided by the patient and the spouse. No languageinterpreter was used.HPI Peyton Zamorano is a 41 year old male who presents today for CC ofinsect bite. Two weeks ago he removed a tick, he does not know how longit was on before removed. The recent bite started on Tuesday. It isblistered red and warm to touch, painful.Symptoms are worsened by touch.He has tried essential oils to area, he states with relief, also usingadvil Risk factors insect bite. PMH not significantBP 130/70 Pulse 64 Temp 36.2 ?C (97.1 ?F) (Tympanic) Resp 16 Wt80.3 kg (177 lb)ALLERGIESAllergen Reactions- Penicillins Unknown Long time ago-thinks it gave him a ZIMMERMAN and it did not helpThere is no problem list on file for this patient.Review of SystemsConstitutional: Negative for chills, fever and malaise/fatigue.Genitourinary : Negative for dysuria.Musculoskeletal: Negative for joint pain and myalgias.Skin: Positive for itching and rash (see HPI).Neurological: Negative for headaches.Physical ExamConstitutional: He is oriented to person, place, and time andwell-developed, well-nourished, and in no distress. No distress.HENT:Head: Normocephalic and atraumatic.Eyes: Conjunctivae and EOM are normal. Pupils are equal, round, andreactive to light.Neck: Normal range of motion. Neck supple.Pulmonary/Chest: Effort normal.Neurological: He is alert and oriented to person, place, and time.Skin: Skin is warm and dry.Psychiatric: Affect normal.Nursing note and vitals reviewed.MDM: Appears to be inflammatory reaction due to insect/spider bite, doesnot appear like tick bite rash. Will treat for inflammation and coverinfectionASSESSMENT/PLAN :1. Insect bite of abdominal wall with local reaction, initial encounter -ICD9: 911.4, E906.4, ICD10: S30.861A, W57.XXXAHandwashing before and after touching areaHydrocortisone ointment to affected sitesKeep area clean and drySite care-soap/water wash followed by antibacterial ointment and dressing2-3 x a dayWatch for signs of infection which are redness, swelling and pus likedrainageCool compress to sting site as needed- METHYLPREDNISOLONE 4 MG TABLETS IN A DOSE PACK- CEPHALEXIN 500 MG CAPSULEDiagnosis and treatment plan were discussed and questions were answered tothe patient's satisfaction. Pt acknowledged understanding of concepts andfollow up plan.Specific signs and symptoms that would indicate the need for higher levelof care were discussed in detail warranting prompt ER evaluation.Rocio White, MACHINE PAN GREASER [facility] Vital Signs Date Time Vital Sign Value Performing Clinician Faci demetrio 03-18-2025 11:50-0400 Body temperature 98.2 [degF] Dr. Ross Alba DO Work Phone: [facility] 03-18-2025 11:50-0400 Diastolic blood pressure 84 mm[Hg] Dr. Ross Alba DO Work Phone: 7([phone])[phone] [address] 03-18-2025 11:50-0400 Heart rate 67 /min Dr. Ross Alba DO Work Phone: 0(445)[phone] [address] 03-18-2025 11:50-0400 Respiratory rate 16 /min Dr. Ross Alba DO Work Phone: [phone])[phone] [address] 03-18-2025 11:50-0400 SaO2% (BldA) [Mass fraction] 97 % Dr. Ross Alba DO Work Phone: [phone])[phone] [address] 03-18-2025 11:50-0400 Systolic blood pressure 115 mm[Hg] Dr. Ross Alba DO Work Phone: 4(133)[phone] [place] [address] 03-18-2025 07:52-0400 Body height 175.[address] Ross Alba DO Work Phone: 0(043)622-037585 [place] [address] 03-18-2025 07:52-0400 Body mass index (BMI) [Ratio] 27.9 kg/m2 Dr. Ross Alba DO Work Phone: 5(004)[phone] [place] [address] 03-18-2025 07:52-0400 Body weight 85.[address] Ross Alba DO Work Phone: 4(475)[phone] [place] [address] 03-11-2025 10:37-0400 Body height 175.[address] Ross Alba DO Work Phone: 2([phone])242-705785 [place] [address] 03-11-2025 10:37-0400 Body mass index (BMI) [Ratio] 28.2 kg/m2 Dr. Ross Alba DO Work Phone: [phone] [address] 03-11-2025 10:37-0400 Body temperature 98.6 [degF] Dr. Ross Alba DO Work Phone: [phone])[phone] [address] 03-11-2025 10:37-0400 Body weight 86.[address] Ross Alba DO Work Phone: [facility] 03-11-2025 10:37-0400 Diastolic blood pressure 83 mm[Hg] Dr. Ross Alba DO Work Phone: [facility] 03-11-2025 10:37-0400 Heart rate 90 /min Dr. Ross Alba DO Work Phone: [facility] 03-11-2025 10:37-0400 SaO2% (BldA) [Mass fraction] 96 % Dr. Ross Alba DO Work Phone: [facility] 03-11-2025 10:37-0400 Systolic blood pressure 120 mm[Hg] Dr. Ross Alba DO Work Phone: [facility] Encounters Encounter Date Encounter Type Care Provider Facility Start: 03-18-2025 End: 03-18-2025 Emergency department patient visit Dr. Ross Alba DO Work Phone: -Emergency Department Work Phone: Start: 03-11-2025 End: 03-11-2025 Patient encounter procedure Travis David [place] [facility] Work Phone: Start: 03-11-2025 End: 03-11-[address] Ross Alba DO Work Phone: [facility] Work Phone: Start: 02-03-2020 End: 02-03-2020 Patient encounter procedure BETZAIDA HERNÁNDEZ [facility] Start: 04-21-2017 End: 04-21-2017 Ambulatory BRE HERNANDEZ [facility] Start: 04-14-2017 End: 04-14-2017 Ambulatory MIGUEL ANGEL HUBER [facility] Procedures Date Procedure Procedure Detail Performing Clinician Start: 03-18-[address] Ross Alba DO Work Phone: Plan of Treatment Date Care Activity Detail Author Start: 03-18-2025 End: 03-18-2025 [facility] spital Patient Education Cellulitis Dc [facility] Work Phone: Payers Date Payer Category Payer Unknown [id number] 2025 Unknown 2025 Self-pay 1975 Unknown [id number] Unknown [id number] Unknown [id number] [id number] Unknown [id number] Social History Date Type Detail Facility Start: 10-17-2023 End: 03-18-2025 Tobacco smoking status NHIS Tobacco smoking consumption unknown (finding) [facility] Start: 1975 Sex Assigned At Male [facility] Discharge summary 03-18-2025 Note Date & Type Note Facility 03-18-2025 Discharge summary [facility] Evaluation note 03-11-2025 Note Date & Type Note Facility 03-11-2025 Evaluation note Diagnosis Onset Date Resolution Cellulitis of left leg acute Ju ne 2024 10:19am [facility] Work Phone: Discharge summary Note Date & Type Note Facility Discharge summary Note Date/Time March 18, 2025 10:06am [facility] Medical Records Department [address] [place] [id number] Emergency Department Summary 03/18/25 MR#: [id number] Acct: [id number] Name: PEYTON ZAMORANO Rep #:[id number] : 1975 49 From: [place] PCP: Dr. Ross Alba MD Status:REG E R Location: ED HPI History of Present Illness Chief Complaint: Cellulitis PFSH PFSH Medical History no medical history Home Medications ?Medication ?Instructions ?Recorded ?Last Taken ?Type sulfamethoxazole 800 1 tab PO BID #14 tabs Unknown Rx mg-trimethoprim 160 mg tablet (Bactrim DS) doxycycline hyclate 100 mg capsule 100 mg PO BID 10 da ys #20 caps 03/18/25 Unknown Rx Allergy/AdvReac Type Severity Reaction Status Date / Time No Known Allergies Allergy Verified 03/18/25 07:51 Surgical History no surgical history Social History Smoking Status: Unknown if ever smoked EXAM Physical Exam Const Vital Signs: 03/18/25 07:52 03/18/25 08:06 03/18/25 10:00 Temperature 97.9 F 98.3 F 97.5 F L Temperature Source Oral Oral Oral Pulse Rate 73 76 61 Respiratory Rate 16 16 18 Blood Pressure 123/101 H 124/93 H 125/91 H Blood Pressure Mean 108 103 102 Pulse Ox 98 99 98 Oxygen Delivery Method Room Air Room Air Room Air MDM MDM MDM Narrative Medical decision making narrative: HISTORY OF PRESENT ILLNESS: Chief complaint: Concern for cellulitis 49-year-old male presents concern for cellulitis. He states he has had 7 days of redness. Notes has been on Bactrim however it does not improve his symptoms. He notes he finished antibiotics today. REVIEW OF SYSTEMS: Pertinent positives: Leg redness Pertinent negatives: Vomiting PHYSICAL EXAM: Nursing triage notes reviewed, Vital signs reviewed Constitutional: please see mdm Lungs: Clear to auscultation, No wheezing or rales. No increased work of breathing, no conversational dyspnea, no accessory muscle use, no nasal flaring. No respiratory distress noted Heart: Regular rate and rhythm, No murmurs, No rubs and No gallops, 2+ distal pulses (radial, femoral, posterior tibial) in all extremities Extremities: No edema, compartments are soft Neuro: Intact sensation L1-S1 dermatomal distributions. Intact 5/5 strength in hip flexion (T12-L3). Knee extension (L2-L4). Ankle dorsiflexion (L4-L5). Ankle plantar flexion (S1). Great toe extension (L5). 2+ patellar and AchillesDTRs. Skin: Erythematous rash noted to the posterior calf, no crepitus or bullae noted, there is approximately 12 x 12 cm area of redness. Pain is on reports exam. Compartments are soft. MEDICAL DECISION MAKING: Chief Complaint: please see HPI External records reviewed: Reviewed prior allergies, problem list, vital signs, current and past medications Factors affecting care: none Social determinants of health: none History obtained from others: none Consults: none MDM Narrative: The patient was initially hemodynamically stable, afebrile and nontoxic-appearing saturating 99% on room air. I considered the following differential diagnosis: Cellulitis, necrotizing fasciitis Clinical exam was not consistent with necrotizing fasciitis. The patient did not appear to be toxic or septic. I obtained a broad lab and imaging workup to further determine if the patient was suffering from a life-threatening etiology. Initially treat the patient with IV vancomycin ALL IMAGES (IF OBTAINED) HAVE BEEN PERSONALLY REVIEWED AND INTERPRETED BY MYSELF. Lactate is wnl indicating no end-organ hypoperfusion and/or hypoxia. CBC without leukocytosis to suggest severe systemic inflammation BMP without evidence of significant electrolyte abnormalities, no anion gap, no acute kidney injury. Patient was offered admission given failure of outpatient antibiotics. Patient was alert and orient x 3 and had capacity to make his own medical decisions. Hechose to be discharged with oral antibiotics and live admission at this time. He promised to return if symptoms change or worsen The patient and/or family, caregivers express understanding. The patient and/orfamily, caregivers agrees with the plan. Shared decision making: I will have a discussion with the patient and or visitors regarding risk/benefits of further testing or admission. They will be made aware of of the risk/benefits inherent in this decision they will be given the opportunity to voice understanding. Total critical care time today provided was at least 0 minutes. This excludes separately billable procedures. Critical care time (if documented) is secondary to the patient having high probability of clinically significant/life threatening deterioration in the patient's condition which required my urgent intervention. Impression: 1. Left leg cellulitis 2. Failed outpatient Dispo: Discharge home This note was generated with [employer] dictation software. It may contain incorrectwords, spelling, and punctuation that were not noted in review of the chart prior to signing. Lab Data Labs: Laboratory Results - last 24 hr 03/18/25 03/18/25 09:05 09:07 WBC 5.0 RBC 4.59 L Hgb 14.0 Hct 40.9 MCV 89.1 MCH 30.5 MCHC 34.2 RDW Std Deviation 42.0 RDW Coeff of Evert 12.7 Plt Count 227 MPV 8.7 Sodium 139 Potassium 4.5 Chloride 105 Carbon Dioxide 22.8 Anion Gap 11 BUN 14 Creatinine 1.15 Estim Creat Clear Calc 82.49 Est GFR (MDRD) Non-Af 77 BUN/Creatinine Ratio 12.0 Glucose 97 Lactic Acid 1.1 Calcium 9.4 Discharge Plan Triage Chief Complaint: Cellulitis ED Provider: Pelon Centeno Dx/Rx/DC Orders Clinical Impression: Cellulitis of left leg Instructions: Cellulitis Dc Prescriptions: New doxycycline hyclate 100 mg capsule 100 mg PO BID 10 Days Qty: 20 0RF No Action sulfamethoxazole-trimethoprim [Bactrim DS] 800-160 mg tablet 1 tab PO BID Qty: 14 0RF Primary Care Provider: Ross Alba Referrals: Ross Alba DO [Primary Care Provider] - Activity Restrictions/Additional Instructions: Thank you for trusting us with your care today! Your clinical exam is consistent with cellulitis. This is due to antibiotics. Please return if develop severe redness that worsens over hours. If develop fever, vomiting, cannot tolerate antibiotics by mouth. Please take Tylenol (2 pills, 650 mg), ibuprofen (2 pills, 400 mg) every 6 hoursas needed for pain and fever control. Please return to the emergency department if your symptoms change or worsen. Please follow with your primary care physician for further outpatient evaluationand management. Print Language: Macedonian Disposition Disposition: Home, Self Care What to do if you have Problems For any increased pain, shortness of breath, bleeding, nausea or vomiting, chestpain, or any unexpected problems, contact your Primary Care Provider. Call [facility] ([phone]) or report to the closest Emergency Room. Call 911 if necessary. 03/18/25 1006 <Electronically signed by Pelon Centeno DO> Cosigner Signature (if applicable): CC: Dr. Ross Alba MD ~ Signed [facility] Work Phone: Evaluation note Note Date & Type Note Facility Evaluation note [facility] Work Phone: Hospital Discharge instructions Note Date & Type Note Facility Hospital Discharge instructions Additional Instructions Thank you for trusting us with your care today! Your clinical exam is consistent with cellulitis. This is due to antibiotics. Please return if develop severe redness that worsens over hours. If develop fever, vomiting, cannot tolerate antibiotics by mouth. Please take Tylenol (2 pills, 650 mg), ibuprofen (2 pills, 400 mg) every 6 hours as needed for pain and fever control. Please return to the emergency department if your symptoms change or worsen. Please follow with your primary care physician for further outpatient evaluation and management. [facility] Work Phone: Reason for referral (narrative) Note Date & Type Note Facility Reason for referral (narrative) No reason for referral information available [facility] Work Phone: Summary Purpose Family History No Family History Records FoundNo Family History Records FoundNo Family History Records FoundNo Family History Records Found Advance Directives No Advanced Directives Records Found Advance Directive Response Recorded Date/ Time Do you have a Healthcare Power of Transcription Coordinator? No March 18, 2025 8:06am Chief Complaint and Reason for Visit Chief Complaint Admit Date L LEG/CONCERN FOR BOIL/POSS BITE March 112024 10:19am Chief Complaint Admit Date L LEG/CONCERN FOR BOIL/POSS BITE March 112024 10:19am cellulitis March 18, 2025 7:50 am Reason for Visit Admit Date Cellulitis of left leg March 11, 2025 1 0:19am Additional Source Comments (unrecognized sect ion and content) No Status Records FoundNo Status Records FoundNo Status Records FoundNo Status Records Found INFORMATION SOURCE (unrecogn ized section and content) DATE CREATED AUTHOR 03/15/2018 [facility] DATE CREATED AUTHOR AUTHOR'S ORGANIZ ATION 02/05/2020 [facility] DATE CREATED AUTHOR AUTHOR'S ORGANIZ ATION 02/13/2020 [facility] DATE CREATED AUTHOR AUTHOR'S ORGANIZ ATION 03/18/2025 [facility] Care Teams (unrecognized sec tion and content) Team Status: Active Member Role Status Dates Dr. Ross Alba DO Family Provider Active Dr. Ross Alba DO Primary Care Provider Active Team Status: Inactive Member Role Status Dates Dr. Ross Alba DO Primary Care Provider Active Start: March 11, 2025 End: March 11, 2025 Dr. Ross Alba DO Referring Provider Active Start: March 11, 2025 End: March 11, 2025 Travis SANCHEZ, PA Attending Provider Active Sta rt: March 11, 2025 End: March 11, 2025 Team Status: Active Member Role/Relationship Status Dates Dr. Ross Alba DO Primary Care Provider Active Team Status: Inactive Member Role/Relationship Status Dates Dr. Ross Alba DO Primary Care Provider Active Start: March 11, 2025 End: March 11, 2025 Dr. Ross Alba DO Referring Provider Active Start: March 11, 2025 End: March 11, 2025 DANIEL Penny Attending Provider Active Sta rt: March 11, 2025 End: March 11, 2025 Team Status: Inactive Member Role/Relationship Status Dates Dr. Ross Alba DO Primary Care Provider Active Start: March 18, 2025 End: March 18, 2025 Dr. Pelon Centeno , DO Emergency Provider Active Start: March 18, 2025 End: March 18, 2025 Goals (unrecognized section and content) Goals may be documented in a n alternate sectionGoals may be documented in an alternate section FOR RECORDS PERTAINING TO PATIENTS WHO ARE OR HAVE BEEN ENROLLED IN A CHEMICAL DEPENDENCY/SUBSTANCEABUSE PROGRAM, SOME INFORMATION MAY BE OMITTED. This clinical summary was aggregated from multiple sources. Caution should be exercised in using it in the provision of clinical care. This summary normalizes information from multiple sources, and as a consequence, information in this document may materially change the coding, format and clinical context of patient data. In addition, data may be omitted in some cases. CLINICAL DECISIONS SHOULD BE BASED ON THE PRIMARY CLINICAL RECORDS. [facility] [employer] [facility]. provides no warranty or guarantee of the accuracy or completeness of information in this document.
== END 2025-03-18 11:52 | disposition home or self-care (01) ==
PROVIDERS: Emergency Provider Emergency Medicine; PCP Family Medicine; Visit Provider Emergency Medicine
DX: L03.116 Cellulitis of left lower limb (principal)
CPT/HCPCS: 80048; 83605; 85027; 96365; 96366; 99284; A4216